=== PATIENT | male | born 1965 | race Caucasian/White ===

== ENCOUNTER 2021-06-25 04:57 | Emergency (ER) | payer OTHER, SELFPAY ==
[2021-06-25 04:57] VITALS: BP 122/66; PULSE 69; RESP 16; TEMP 36.3; O2SAT 97; BMI 32.8
--- NOTE | 2021-06-25 05:05 | RAD_ITS ---
STUDY: X-RAY CHEST REASON FOR EXAM: Male, 55 years old. chest pain TECHNIQUE: Single AP portable view of the chest. COMPARISON: None. FINDINGS: There are superimposed monitor leads. Mild elevation left hemidiaphragm. Density in the left base, component of atelectasis -- infiltrate possible. There is no demonstrated pleural abnormality. Normal size heart. Normal mediastinum and jose. Normal visualized pulmonary arteries. Normal visualized aortic arch and descending thoracic aorta. Obscured thoracic spine. Normal visualized ribs, clavicles, and shoulders. There is no demonstrated abnormality of the visualized soft tissue structures of the upper abdomen. RAD/Chest 1 View (Portable) IMPRESSION: Mild volume loss possible atelectasis in the left base, early infiltrate not separable. Electronically Signed: Orin Irby MD at 6:01 EDT , Service support ,
--- NOTE | 2021-06-25 05:05 | EKG12_ITS ---
Test Reason : CP Blood Pressure : / mmHG Vent. Rate : 066 BPM Atrial Rate : 066 BPM P-R Int : 160 ms QRS Dur : 068 ms QT Int : 374 ms P-R-T Axes : 022 -12 -16 degrees QTc Int : 392 ms Normal sinus rhythm Normal ECG Confirmed by JANIA GARCIA, MARIA R ([id number]), publications editor JENNY WILKERSON ([id number]) on 06/26/2021 9:53:49 AM Referred By: Confirmed By:MARIA R DYKES MD
--- NOTE | 2021-06-25 05:05 | EDS_ITS ---
HPI History of Present Illness Chief Complaint: Chest Pain Informant: patient and EMS Narrative Narrative: 55-year-old male presents the emergency room for evaluation of midsternal chest pain. Patient states that on Thursday he began to have a viral respiratory illness. He tested positive for COVID-19 at an urgent care yesterday. He states that yesterday he is actually feeling pretty good. Tonight at approximately 0300 hrs. the patient woke from sleep. States is not uncommon for him to wake at that time have difficulty falling back asleep. He noted a dull ache in his epigastric xiphoid region. It did not radiate. He notes that he was sweaty. He tried several doses of Tums as well as an omeprazole. States he felt like he was having an anxiety attack so he called EMS. They gave him nitroglycerin and aspirin. Prehospital EKG showed a normal sinus rhythm. No concerning features of ACS noted [facility] Medical History GERD (gastroesophageal reflux disease) Home Medications omeprazole 40 mg PO DAILY 06/25/21 [History Last Taken Unknown] Allergy/AdvReac Type Severity Reaction Status Date / Time No Known Allergies Allergy Verified 06/25/21 05:01 Social History (Updated 06/25/21 @ 05:[address] Willy Hill DO) Smoking Status: Current every day smoker tobacco type: e-cigarettes substance use type: does not use ROS ROS ED Constitutional Constitutional ED: Denies chills or weight loss Eyes Eyes: Denies change in vision or diplopia ENT ENT ED: Reports rhinorrhea and sore throat; Denies ear pain Cardiovascular Cardiovascular: Reports chest pain; Denies orthopnea, palpitations or racing heartbeat Respiratory/Chest Respiratory/Chest: Reports cough; Denies dyspnea or orthopnea Gastrointestinal Gastrointestinal: Reports abdominal pain; Denies diarrhea, nausea or vomiting Genitourinary Genitourinary ED: Denies dysuria, hematuria or urinary frequency Musculoskeletal Musculoskeletal: Denies arthralgias or myalgias Integumentary Denies abscess or rash Neurologic Neurologic: Denies headache(s) or weakness Psychiatric Psychiatric: Denies anxiety, depression, suicidal ideation or suicidal thoughts Endocrine Endocrinology: Denies polydipsia, polyphagia or polyuria Allergic/Immunologic Allergic/Immunologic ED: Denies mouth swelling, tongue swelling or urticaria EXAM Physical Exam Const Vital Signs: 06/25/21 04:57 06/25/21 05:01 06/25/21 07:16 Temperature 97.4 F L Temperature Source Temporal Pulse Rate 69 69 Respiratory Rate 16 20 H Respiratory Pattern Normal Blood Pressure 122/66 H 103/62 Blood Pressure Mean 84 75 Pulse Ox 97 96 Oxygen Delivery Method Room Air Room Air Positive well nourished and well developed General Appearance ED: well developed HEENT Reports normocephalic, head/scalp atraumatic and moist mucous membranes Eyes PERRL and EOMs intact bilaterally Neck no lymphadenopathy, supple and no JVD Resp normal respiratory effort and clear to auscultation bilaterally Cardio regular rate, regular rhythm and no murmurs GI normal to inspection, nondistended, normoactive bowel sounds and non-tender Palpation: soft Back/Spine no CVA tenderness and normal ROM Extremity normal to inspection General Extremety ED: Negative for edema General Extremity: Negative for edema Neuro oriented x3 and CN's II-XII intact bilaterally Sensorium / Orientation: alert Motor Exam: strength 5/5 throughout Psych mental status grossly normal Mood & Affect: Negative for depressed or tearful Skin no rashes or lesions noted and no wounds MDM MDM MDM Narrative Medical decision making narrative: My interpretation of the chest x-ray is no acute process. 2 sets of cardiac enzymes are negative. Normal D-dimer. No events on the monitor and EKG does not show any concerning features. Patient received a GI cocktail and no longer has any pain. I would think that his symptoms are most likely GI in nature. Recommend continuing taking his omeprazole daily. Follow-up with primary care Lab Data Attestation: I reviewed the patient's lab results. Labs: Laboratory Results - last 24 hr 06/25/21 06/25/21 06/25/21 05:08 05:08 05:08 WBC 6.9 RBC 5.03 Hgb 14.6 Hct 45.0 MCV 89.5 MCH 29.0 MCHC 32.4 RDW Std Deviation 40.0 RDW Coeff of Esteban 12.2 Plt Count 183 MPV 11.1 Immature Gran % (Auto) 0.300 Neut % (Auto) 55.7 Lymph % (Auto) 32.6 [place] % (Auto) 10.7 H Eos % (Auto) 0.4 Baso % (Auto) 0.3 Absolute Neuts (auto) 3.8 Absolute Lymphs (auto) 2.25 Nucleated RBC % 0 D-Dimer Quant (PE/DVT) 0.29 Sodium 140 Potassium 3.5 Chloride 106 Carbon Dioxide 31.0 Anion Gap 3 L BUN 12 Creatinine 1.09 Estim Creat Clear Calc 82.52 Est GFR (MDRD) Af Amer 90 Est GFR (MDRD) Non-Af 75 BUN/Creatinine Ratio 11.0 Glucose 127 H Calcium 8.7 Troponin I High Sens 5 06/25/21 07:10 WBC RBC Hgb Hct MCV MCH MCHC RDW Std Deviation RDW Coeff of Esteban Plt Count MPV Immature Gran % (Auto) Neut % (Auto) Lymph % (Auto) [place] % (Auto) Eos % (Auto) Baso % (Auto) Absolute Neuts (auto) Absolute Lymphs (auto) Nucleated RBC % D-Dimer Quant (PE/DVT) Sodium Potassium Chloride Carbon Dioxide Anion Gap BUN Creatinine Estim Creat Clear Calc Est GFR (MDRD) Af Amer Est GFR (MDRD) Non-Af BUN/Creatinine Ratio Glucose Calcium Troponin I High Sens 6 Radiography Diagnostic Testing: Radiology Impression Chest X-Ray 06/25/21 05:05 IMPRESSION: Mild volume loss possible atelectasis in the left base, early infiltrate not separable. Electronically Signed: Orin Irby MD at 6:01 EDT , Service support , EKG Initial EKG: Attestation: I personally reviewed and interpreted this EKG as follows: Comments: Normal sinus rhythm with a ventricular rate of 66 bpm. Discharge Plan Triage Chief Complaint: Chest Pain ED Provider: Willy Hill Dx/Rx/DC Orders Clinical Impression: Chest pain, Chest pain due to GERD Instructions: ED GERD (Adult) Prescriptions: No Action omeprazole 40 mg capsule,delayed release(DR/EC) 40 mg PO DAILY RF: 0 Primary Care Provider: Jhonny Valenzuela Referrals: Jhonny Valenzuela MD [Primary Care Provider] - 10-14 Days if not better Disposition Disposition: Home, Self Care
[2021-06-25 05:17] LABS: Absolute Lymphocyte Count 2.25 X10^3/uL (0.83-4.51); Absolute Neutrophil Count 3.8 X10^3/uL (2.0-7.7); Basophil# 0.02 X10^3/uL; Basophil% 0.3 % (0-1); Eosinophil# 0.03 X10^3/uL; Eosinophils% 0.4 % (0-5); Hemoglobin 14.6 g/dL (13.0-16.5); Lymphocyte # 2.25 X10^3/ul (0.83-4.51); Lymphocyte % 32.6 % (19-41); Mean Corp Hgb Conc 32.4 g/dL (32-36); Mean Corpuscular Volume 89.5 fL (80-94); Mean Platelet Vol. 11.1 fl (6.2-12.0); Monocyte# 0.74 X10^3/uL; Monocyte% 10.7 % (0-10); NRBC Flagged by Analyzer 0 % (0-5); Neutrophil # 3.84 X10^3/uL (2.7-7.7); Neutrophil % 55.7 % (47-70); Platelet Count 183 K/mm3 (150-450); RBC Distribution Width CV 12.2 % (11.6-14.6); Red Blood Count 5.03 M/mm3 (4.6-6.2); White Blood Count 6.9 K/mm3 (4.4-11.0)
[2021-06-25] MEDS: Mag Hydrox/Al Hydrox/Simeth 30 ML UDC PO (05:19)
[2021-06-25 05:32] LABS: D-Dimer Quantitative (DVT/PE) 0.29 FEU/ug/m (0.27-0.49)
[2021-06-25 05:35] LABS: Anion Gap 3 (5-15); BUN 12 mg/dL (7-18); Calcium,Total 8.7 mg/dL (8.5-10.1); Chloride 106 mmol/L (98-107); Creatinine, Serum 1.09 mg/dL (0.70-1.30); EST Glomerular Filtration Rate 75 mL/min (>60); Est Glom Filt Rate - Afr Amer 90 mL/min (>60); Estimated Creatinine Clearance 82.52 ml/min; Glucose 127 mg/dL (74-106); Potassium 3.5 mmol/L (3.5-5.1); Sodium Level 140 mmol/L (136-145); Troponin-I HS 5 pg/mL (3.0-78.0)
[2021-06-25 07:16] VITALS: BP 103/62; PULSE 69; RESP 20; O2SAT 96
[2021-06-25 07:35] LABS: Troponin-I HS 6 pg/mL (3.0-78.0)
[2021-06-25 08:04] VITALS: BP 102/54; PULSE 78; RESP 16; O2SAT 98
== END 2021-06-25 08:05 | disposition home or self-care (01) ==
PROVIDERS: Emergency Provider Emergency Medicine; PCP Family Medicine
DX: K21.9 Gastro-esophageal reflux disease without esophagitis (principal); R07.9 Chest pain, unspecified; F17.290 Nicotine dependence, other tobacco product, uncomplicated; Z79.899 Other long term (current) drug therapy
CPT/HCPCS: 36415; 71045; 80048; 84484; 85025; 85379; 93005; 99285; A4216

== ENCOUNTER 2023-01-17 23:48 | Emergency (ER) | payer OTHER, SELFPAY ==
[2023-01-17 23:48] VITALS: BP 182/81; PULSE 64; RESP 16; TEMP 36.9; O2SAT 98; BMI 31.0
--- NOTE | 2023-01-18 00:05 | EKG12_ITS ---
Test Reason : CP Blood Pressure : / mmHG Vent. Rate : 061 BPM Atrial Rate : 061 BPM P-R Int : 104 ms QRS Dur : 080 ms QT Int : 402 ms P-R-T Axes : 000 001 -03 degrees QTc Int : 404 ms Sinus rhythm with short [place] Otherwise normal ECG Confirmed by LAZARO GARCIA, AMINATA ([id number]), videotape editor JENNY WILKERSON ([id number]) on 01/19/2023 1:41:14 PM Referred By: GERALD Confirmed By:AMINATA WILLIS MD
--- NOTE | 2023-01-18 00:05 | RAD_ITS ---
INDICATION: abd pain EXAMINATION/TECHNIQUE: X-RAY - portable single view XR Abdomen Series W/ Chest 1 View: Frontal chest with 3 image upright and supine abdominal radiograph. COMPARISON: June 25, 2021 FINDINGS: LINES/DEVICES: None. --Chest: LUNGS: No consolidation, florid edema, or effusion. No pneumothorax. MEDIASTINUM AND CARDIOVASCULAR STRUCTURES: Cardiac silhouette not enlarged. BONES AND SOFT TISSUES: No acute findings. --Abdomen: BOWEL GAS PATTERN: Diffuse colonic and small bowel gas with moderate colonic stool. No focal stomach or bowel distention. FREE AIR: None visualized. ORGANOMEGALY: Not seen. CALCIFICATIONS: No concerning calcifications. BONES AND SOFT TISSUES: No acute findings. RAD/Acute Abdomen Inc Chest IMPRESSION: No evidence of acute cardiopulmonary process. Nonspecific bowel gas pattern with moderate colonic stool burden Electronically Signed: Suhas Garcia MD at 0:38 EDT ,
--- NOTE | 2023-01-18 00:18 | EDS_ITS ---
HPI History of Present Illness Chief Complaint: Chest Pain Narrative Narrative: Patient is a 57-year-old male with past medical history of GERD and nicotine use. He states he had an early dinner around 3 PM today and starting roughly 1 hour prior to arrival he developed upper abdominal pain/lower chest pain. He states he felt that this was most likely his acid reflux and he took his omeprazole but there is no improvement. He states that there is no radiation of the pain he denies any nausea vomiting diaphoresis or shortness of breath. He states his father had a heart attack at roughly age 80 and as his symptoms have not improved it is a concern this could be cardiac in nature and therefore comes in for evaluation [facility] Medical History GERD (gastroesophageal reflux disease) Home Medications omeprazole 40 mg capsule,delayed release 40 mg PO DAILY 06/25/21 [History Last Taken Unknown] Allergy/AdvReac Type Severity Reaction Status Date / Time No Known Allergies Allergy Verified 06/25/21 05:01 Social History (Updated 06/25/21 @ 05:[address] Willy Hill DO) Smoking Status: Current every day smoker tobacco type: e-cigarettes substance use type: does not use ROS ROS ED Constitutional Constitutional ED: Denies chills or fever(s) ENT ENT ED: Denies sore throat Cardiovascular Cardiovascular: Reports chest pain Respiratory/Chest Respiratory/Chest: Denies cough or dyspnea Gastrointestinal Gastrointestinal: Reports abdominal pain; Denies diarrhea, nausea or vomiting Genitourinary Genitourinary ED: Denies dysuria Musculoskeletal Musculoskeletal: Denies back pain or myalgias Integumentary Denies rash Neurologic Neurologic: Denies headache(s) Hematologic/Lymphatic Hematologic/Lymphatic: Denies easy bleeding or easy bruising EXAM Physical Exam Const Vital Signs: 01/17/23 23:48 01/18/23 01:17 Temperature 98.4 F Temperature Source Temporal Pulse Rate 64 77 Respiratory Rate 16 22 H Blood Pressure 182/81 H 124/78 H Blood Pressure Mean 114 93 Pulse Ox 98 Oxygen Delivery Method Room Air Room Air Positive well nourished and well developed General Appearance ED: well developed HEENT Reports moist mucous membranes Eyes PERRL and EOMs intact bilaterally General Eye ED: Negative for scleral icterus Neck supple Chest Wall palpation of chest normal Resp normal respiratory effort and clear to auscultation bilaterally Cardio regular rate and regular rhythm Rate: other Other Details: Radial pulses are plus 2 out of 4 bilaterally are equal and symmetric Carotid pulses equal and symmetric as well GI non-distended GI Narrative: Abdomen is soft and nondistended with normal active bowel sounds. Patient has pain with palpation in the midepigastric region with mild voluntary guarding at the site. No rigidity or pulsatile mass or fluid wave. Auscultation: normoactive bowel sounds Palpation: soft Extremity normal to inspection Extremity Narrative: No asymmetric edema no pitting edema negative Homans' sign bilaterally Neuro oriented x3 and CN's II-XII intact bilaterally Sensorium / Orientation: alert Psych mental status grossly normal Skin no rashes or lesions noted MDM MDM MDM Narrative Medical decision making narrative: Patient presented to the ER hypertensive but otherwise with stable vitals. He reported pain in the upper abdomen/lower chest and nose felt this is most likely abdominal in nature but with chance it could be acute cardiac event and EKG and troponin were obtained. There is concern this could be pancreatitis versus gallbladder dysfunction/biliary colic or even possible GI perforation from a peptic ulcer. Blood work was obtained that shows normal liver enzymes going against gallbladder dysfunction and normal lipase going against pancreatitis. X-ray revealed no free air or no signs of acute lung pathology. Patient was given a GI cocktail and Pepcid and IV hydration and on reevaluation reported feeling better. His initial troponin was 9 and the 2-hour delta elevated by only one-point to a value of 10 which is not clinically significant. On reevaluation the patient reports resolution of his discomfort after the Pepcid and GI cocktail and his blood pressure is improved. Therefore at this time as work-up indicates this is most likely gastritis and not acute cardiac event imaging study showed no signs of perforation or cardiopulmonary process and there is no evidence to suggest this is pancreatitis or biliary colic based on his laboratory values he is otherwise safe for discharge. History & Record Review Discussion w/independent historian: Patient Lab Data Attestation: I reviewed the patient's lab results. Labs: Laboratory Results - last 24 hr 01/17/23 01/17/23 01/18/23 23:50 23:50 01:49 WBC 10.1 RBC 4.92 Hgb 14.8 Hct 43.7 MCV 88.8 MCH 30.1 MCHC 33.9 RDW Std Deviation 40.1 RDW Coeff of Esteban 12.4 Plt Count 215 MPV 11.5 Immature Gran % (Auto) 0.200 Neut % (Auto) 37.6 L Lymph % (Auto) 52.3 H [place] % (Auto) 8.1 Eos % (Auto) 1.5 Baso % (Auto) 0.3 Absolute Neuts (auto) 3.8 Absolute Lymphs (auto) 5.26 H Nucleated RBC % 0 Differential Comment SCANNED Sodium 137 Potassium 3.4 L Chloride 103 Carbon Dioxide 27.0 Anion Gap 7 BUN 33 H Creatinine 1.40 H Estim Creat Clear Calc 62.75 Est GFR (MDRD) Af Amer 67 Est GFR (MDRD) Non-Af 56 L BUN/Creatinine Ratio 23.6 H Glucose 124 H Calcium 9.0 Total Bilirubin 0.50 Direct Bilirubin 0.21 AST 37 ALT 20 Alkaline Phosphatase 65 Troponin I High Sens 9 10 Total Protein 7.4 Albumin 3.9 Globulin 3.5 Lipase 94 Radiography Diagnostic Testing: Clinical Impression(s) from Imaging Studies Acute Abdomen Series 01/18/23 00:05 IMPRESSION: No evidence of acute cardiopulmonary process. Nonspecific bowel gas pattern with moderate colonic stool burden Electronically Signed: Suhas Garcia MD at 0:38 EDT , Acute abdominal series with 1 view chest x-ray as interpreted by the emergency medicine physician reveals a nonobstructive nonspecific bowel gas pattern and an x-ray of the chest reveals no acute infiltrate pneumothorax or pleural effusion Discharge Plan Triage Chief Complaint: Chest Pain ED Provider: Trevin Gomez Dx/Rx/DC Orders Clinical Impression: Gastritis, Chest pain due to GERD Instructions: ED Gastritis (Adult) Prescriptions: No Action omeprazole 40 mg capsule,delayed release(DR/EC) 40 mg PO DAILY Label Comments: TAKE 1 CAPSULE BY MOUTH EVERY DAY Primary Care Provider: Yumiko Heard NP Referrals: Jhonny Valenzuela MD [Non-Staff] - Activity Restrictions/Additional Instructions: Your work-up today indicates there are no signs of cardiac damage or cardiac event that caused your symptoms. Your work-up indicates this is most likely stomach in nature and therefore continue to take your omeprazole to help control this. Please return to the ER should you have any further concerns Disposition Disposition: Home, Self Care
[2023-01-18] MEDS: 0.9% Normal Saline 1,000 ML 999 ML IV (00:27)
[2023-01-18] MEDS: Famotidine 200 MG/20 ML MDV 20 MG in 0.9% Normal Saline (Pres. free 8 ML 300 MG IV (00:27)
[2023-01-18] MEDS: Aspirin 325 MG Tablet PO (00:27)
[2023-01-18] MEDS: Mag Hydrox/Al Hydrox/Simeth 30 ML UDC PO (00:27)
[2023-01-18 00:30] LABS: Absolute Lymphocyte Count 5.26 X10^3/uL (0.83-4.51); Absolute Neutrophil Count 3.8 X10^3/uL (2.0-7.7); Basophil# 0.03 X10^3/uL; Basophil% 0.3 % (0-1); Eosinophil# 0.15 X10^3/uL; Eosinophils% 1.5 % (0-5); Hematocrit 43.7 % (40-54); Hemoglobin 14.8 g/dL (13.0-16.5); Lymphocyte # 5.26 X10^3/ul (0.83-4.51); Lymphocyte % 52.3 % (19-41); Mean Corp Hgb Conc 33.9 g/dL (32-36); Mean Corpuscular Hgb 30.1 pg (27.0-32.0); Mean Corpuscular Volume 88.8 fL (80-94); Mean Platelet Vol. 11.5 fl (6.2-12.0); Monocyte# 0.81 X10^3/uL; Monocyte% 8.1 % (0-10); NRBC Flagged by Analyzer 0 % (0-5); Neutrophil # 3.78 X10^3/uL (2.7-7.7); Neutrophil % 37.6 % (47-70); POSITIVE DIFFERENTIAL YES; Platelet Count 215 K/mm3 (150-450); RBC Distribution Width CV 12.4 % (11.6-14.6); RBC Distribution Width SD 40.1 fl (35.1-43.9); Red Blood Count 4.92 M/mm3 (4.6-6.2); White Blood Count 10.1 K/mm3 (4.4-11.0)
[2023-01-18 00:37] LABS: Differential Indicated SCAN CRITERIA MET
[2023-01-18 00:55] LABS: AST(SGOT) 37 U/L (15-37); Alanine Aminotransfer ALT/SGPT 20 U/L (16-61); Albumin, Serum 3.9 g/dL (3.2-5.0); Alkaline Phosphatase 65 U/L (45-117); Anion Gap 7 (5-15); BUN 33 mg/dL (7-18); BUN/Creat Ratio 23.6 RATIO (10-20); Bilirubin, Direct 0.21 mg/dL (0.00-0.30); Chloride 103 mmol/L (98-107); EST Glomerular Filtration Rate 56 mL/min (>60); Est Glom Filt Rate - Afr Amer 67 mL/min (>60); Estimated Creatinine Clearance 62.75 ml/min; Globulin 3.5 g/dL (2.2-4.2); Glucose 124 mg/dL (74-106); Lipase 94 U/L (73-393); Potassium 3.4 mmol/L (3.5-5.1); Protein, Total 7.4 g/dL (6.4-8.2); Sodium Level 137 mmol/L (136-145); Troponin-I HS 9 pg/mL (3.0-78.0)
[2023-01-18 01:04] LABS: Differential Comment SCANNED
[2023-01-18 01:17] VITALS: BP 124/78; PULSE 77; RESP 22
[2023-01-18 02:10] LABS: Troponin-I HS 10 pg/mL (3.0-78.0)
[2023-01-18 02:40] VITALS: BP 133/83; PULSE 74; RESP 18; O2SAT 100
== END 2023-01-18 02:43 | disposition home or self-care (01) ==
PROVIDERS: Emergency Provider Emergency Medicine; PCP Registered Nurse; Visit Provider Emergency Medicine
DX: K29.70 Gastritis, unspecified, without bleeding (principal); F17.290 Nicotine dependence, other tobacco product, uncomplicated; K21.9 Gastro-esophageal reflux disease without esophagitis; Z79.899 Other long term (current) drug therapy
CPT/HCPCS: 74022; 80048; 80076; 83690; 84484; 85025; 93005; 96361; 96374; 99284; J7030; A4216; J3490

== ENCOUNTER 2023-03-21 04:27 | Emergency (ER) | payer OTHER, SELFPAY ==
[2023-03-21 04:28] VITALS: BP 134/77; PULSE 58; RESP 25; TEMP 36.4; O2SAT 98; BMI 30.8
[2023-03-21] MEDS: Mag Hydrox/Al Hydrox/Simeth 30 ML UDC PO (04:56)
--- NOTE | 2023-03-21 05:28 | EDS_ITS ---
HPI History of Present Illness Chief Complaint: Abd Pain Narrative Narrative: Patient is a 57-year-old male with past medical history of GERD. He takes omeprazole at home. He states this evening after eating he developed some upper mid abdominal pain. He states he took his omeprazole but did not have improvement of symptoms over the course of the next 1 to 2-hour. He does report that he has a remote history of cardiac disease in his father and without the symptoms resolving he was concerned that this could be an atypical cardiac presentation and therefore presents to the ER for evaluation. Of note he does state that once in the emergency department he has noticed some spontaneous improvement of his symptoms [facility] Medical History GERD (gastroesophageal reflux disease) Home Medications omeprazole 40 mg capsule,delayed release 40 mg PO DAILY 06/25/21 [History Last Taken Unknown] sucralfate 1 gram tablet (Carafate) 1 g PO TID 30 days #90 tabs 03/21/23 [Rx Last Taken Unknown] Allergy/AdvReac Type Severity Reaction Status Date / Time No Known Allergies Allergy Verified 06/25/21 05:01 Social History (Updated 06/25/21 @ 05:[address] Willy Hill DO) Smoking Status: Current every day smoker tobacco type: e-cigarettes substance use type: does not use ROS ROS ED Constitutional Constitutional ED: Denies chills or fever(s) ENT ENT ED: Denies sore throat Cardiovascular Cardiovascular: Denies chest pain, palpitations or racing heartbeat Respiratory/Chest Respiratory/Chest: Denies cough or dyspnea Gastrointestinal Gastrointestinal: Reports abdominal pain and nausea; Denies diarrhea or vomiting Genitourinary Genitourinary ED: Denies dysuria Musculoskeletal Musculoskeletal: Denies back pain or myalgias Integumentary Denies rash Neurologic Neurologic: Denies headache(s) Hematologic/Lymphatic Hematologic/Lymphatic: Denies easy bleeding or easy bruising EXAM Physical Exam Const Vital Signs: 03/21/23 04:28 Temperature 97.6 F L Temperature Source Oral Pulse Rate 58 L Respiratory Rate 25 H Blood Pressure 134/77 H Blood Pressure Mean 96 Pulse Ox 98 Oxygen Delivery Method Room Air Positive well nourished and well developed General Appearance ED: well developed HEENT Reports moist mucous membranes HEENT Narrative: No signs of infection in the posterior pharynx Eyes PERRL and EOMs intact bilaterally Eyes Narrative: No scleral icterus Neck supple Resp normal respiratory effort and clear to auscultation bilaterally Cardio regular rate and regular rhythm Rate: other Other Details: Radial pulses are plus 2 out of 4 bilaterally are equal and symmetric GI non-distended GI Narrative: There is mild pain with palpation in the midepigastric region without voluntary guarding or rigidity. No pulsatile mass or fluid wave Auscultation: normoactive bowel sounds Palpation: soft Back/Spine no CVA tenderness Extremity normal to inspection Neuro oriented x3 and CN's II-XII intact bilaterally Sensorium / Orientation: alert Psych mental status grossly normal Skin no rashes or lesions noted General Skin Exam: Negative for jaundice MDM MDM MDM Narrative Medical decision making narrative: Patient presented to the ER in no acute distress and reported improvement of symptoms upon arrival. History and exam is most consistent with gastritis. I discussed with patient possible work-up because of a family history of cardiac disease and he has pain in the upper abdomen which we do not consider the lower section of the heart. Patient was seen roughly 2 months ago for same event and had a cardiac work-up at that time which was negative. He also discussed with patient possible testing for gallbladder disease or pancreatitis. Patient states as symptoms are improving he would just like treatment for gastritis as he feels this is most likely culprit of his symptoms and therefore he was given a GI cocktail. Upon reevaluation he now reports resolution of symptoms and is otherwise safe for discharge. History & Record Review Discussion w/independent historian: Patient Discharge Plan Triage Chief Complaint: Abd Pain ED Provider: Trevin Gomez Dx/Rx/DC Orders Clinical Impression: Gastritis Instructions: ED Gastritis (Adult) Prescriptions: New sucralfate [Carafate] 1 gram tablet 1 g PO TID 30 Days Qty: 90 0RF No Action omeprazole 40 mg capsule,delayed release(DR/EC) 40 mg PO DAILY Label Comments: TAKE 1 CAPSULE BY MOUTH EVERY DAY Primary Care Provider: Yumiko Heard NP Referrals: Yumiko Heard NP, [employer] [Primary Care Provider] - Activity Restrictions/Additional Instructions: Please add Carafate to your daily omeprazole to see if this helps improve symptoms. If you have any further concerns please return to the ER for repeat evaluation Disposition Disposition: Home, Self Care Discharge Date/Time: 03/21/23 05:43
== END 2023-03-21 05:43 | disposition home or self-care (01) ==
PROVIDERS: Emergency Provider Emergency Medicine; PCP Registered Nurse; Visit Provider Emergency Medicine
DX: K29.70 Gastritis, unspecified, without bleeding (principal); F17.290 Nicotine dependence, other tobacco product, uncomplicated; K21.9 Gastro-esophageal reflux disease without esophagitis; Z79.899 Other long term (current) drug therapy
CPT/HCPCS: 99283

== ENCOUNTER → 2025-08-02 | Outpatient (CLI) | payer OTHER, SELFPAY ==
[2025-08-02 10:42] LABS: Hematocrit 43.9 % (40-54); Hemoglobin 15.0 g/dL (13.0-16.5); Immature Granulocytes Count 0.010 X10^3/uL (0.0-0.0); Mean Corp Hgb Conc 34.2 g/dL (32-36); Mean Corpuscular Volume 88.7 fL (80-94); Mean Platelet Vol. 11.4 fl (6.2-12.0); NRBC Flagged by Analyzer 0 % (0-5); Platelet Count 187 K/mm3 (150-450); RBC Distribution Width CV 12.3 % (11.6-14.6); RBC Distribution Width SD 39.7 fl (35.1-43.9); Red Blood Count 4.95 M/mm3 (4.6-6.2); White Blood Count 6.3 K/mm3 (4.4-11.0)
[2025-08-02 11:21] LABS: Albumin, Serum 4.3 g/dL (3.5-5.0); Anion Gap 10 (5-15); BUN 15 mg/dL (4-19); BUN/Creat Ratio 16.0 RATIO (10-20); Calcium,Total 9.4 mg/dL (7.6-11.0); Carbon Dioxide 27.4 mmol/L (21.0-32.0); Chloride 102 mmol/L (98-108); Glucose 86 mg/dL (70-99); Potassium 4.1 mmol/L (3.3-5.1)
== END | disposition home or self-care (01) ==
LOC: LAB 09:19
PROVIDERS: PCP Registered Nurse; Referring Provider Specialist; Visit Provider Specialist
DX: Z01.818 Encounter for other preprocedural examination (principal)
CPT/HCPCS: 36415; 80048; 82040; 85025